=== PATIENT | male | born 1980 | race Caucasian/White ===

== ENCOUNTER 2017-02-18 13:52 | Emergency (ER) | payer OTHER ==
--- NOTE | ~2017-02-18 | CR71 ---
[facility] A Service of [facility] RADIOLOGY TEXT RESULTS PATIENT: CAYLA RAMIREZ LOCATION: CFTX : 78 UNIT #: [id number] AGE: [address]: Brook Alston SEX: M ORDER DR: [id number] [address] [address] [id number] E MR#: [id number] Acc #: [id number] NAME: CAYLA RAMIREZ : 1980 SEX: M STUDY DATE/TIME: 02/18/2017 16:14 UNIT: CFTX ROOM: STUDY DESCRIPTION: CR Chest Single View Attending Physician: Brook Alston Pa-C Ordering Physician: Ed Doc Alec Wilson Primary Care Physician: Primary Care Physician No MEDICAL IMAGING REPORT This report is preliminary unless electronic signature is present EXAM Frontal chest, 02/18/2017 INDICATION 36-year-old male with chest pain on the right extending into the right shoulder, pain with taking a deep breath. Symptoms 4 days. No known injury. TECHNIQUE Frontal chest, no comparisons. FINDINGS Cardiac silhouette is within normal limits. Vascularity normal. Lung volumes are low. There is bronchovascular crowding with probable atelectasis or scarring in the lower lung zones, left slightly greater than right. No pneumothorax. IMPRESSION Low-volume image, otherwise negative frontal chest. Probable atelectasis or scarring in the lower lung zones bilaterally. Dictated by... Mitch Grullon M.D. THIS IS AN ELECTRONICALLY VERIFIED REPORT Mitch Grullon M.D. at 02/19/2017 2:30 PM HAWK/vi TD: 02/19/2017 00:01 JOB #: [id number] [facility] A Service [facility] RADIOLOGY TEXT RESULTS PATIENT: CAYLA RAMIREZ LOCATION: CFT[facility] : 78 UNIT #: [id number] AGE: [address]: Brook Alston SEX: M ORDER DR: MEDICAL IMAGING REPORT Page 1 of 1 COPY
--- NOTE | ~2017-02-18 | CR230 ---
[facility] A Service of [facility] RADIOLOGY TEXT RESULTS PATIENT: CAYLA RAMIREZ LOCATION: [place] : [birth year] UNIT #: [id number] AGE: [address]: Brook Alston SEX: M ORDER DR: [id number] [id number] [facility]. [place], [place] [address] [id number] MR#: [id number] Acc #: [id number] NAME: CAYLA RAMIREZ : 1980 SEX: M STUDY DATE/TIME: 02/18/2017 16:16 UNIT: CFTX ROOM: STUDY DESCRIPTION: CR Shoulder Min 2 View Rt Attending Physician: Brook Alston Pa-C Ordering Physician: Ed Doc Alec Wilson Primary Care Physician: Primary Care Physician No MEDICAL IMAGING REPORT This report is preliminary unless electronic signature is present EXAM Right shoulder, 02/18/17 INDICATIONS 36-year-old male with shoulder pain, chest pain extending into the right shoulder, pain when taking a deep breath. Symptoms for days. TECHNIQUE Two views of the right shoulder. No comparisons. FINDINGS AP view with internal and external rotation of the shoulder girdle shows satisfactory relationship of the humeral head and glenoid fossa. The joint space is normal. There is no identifiable fracture or dislocation or bony destructive process about the shoulder girdle anatomy. The acromioclavicular joint is normal. There is no radiopaque foreign body in the region. IMPRESSION Negative 2-view right shoulder. Dictated by... Mitch Grullon M.D. THIS IS AN ELECTRONICALLY VERIFIED REPORT Mitch Grullon M.D. at 02/19/2017 2:30 PM HAWK/rai TD: 02/19/2017 00:22 JOB #: [id number] MEDICAL IMAGING REPORT [facility] A Service of [facility] RADIOLOGY TEXT RESULTS PATIENT: CAYLA RAMIREZ LOCATION: [facility] : [birth year] UNIT #: [id number] AGE: [address]: Brook Alston SEX: M ORDER DR: Page 1 of 1 COPY
== END 2017-02-18 17:23 | disposition home or self-care (01) ==
LOC: CED 13:52 → CFTX 13:52
DX: M25.511 Pain in right shoulder (principal); F17.210 Nicotine dependence, cigarettes, uncomplicated
CPT/HCPCS: 71010; 73030; 99283